=== PATIENT | male | born 1985 | race Two or more races ===

== ENCOUNTER 2019-06-17 14:37 | Emergency (ER) | payer BC ==
[~2019-06-17] VITALS: Ht 175.3 cm; Wt 72.6 kg
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
--- NOTE | 2019-06-17 15:13 | NUR ---
MATILDE MCKNIGHT AT BEDSIDE
[2019-06-17 15:19] VITALS: BP 132/76
--- NOTE | 2019-06-17 15:19 | NUR ---
Patient discharged to home in stable condition. Written and verbal after care instructions given. Patient verbalizes understanding of instruction.
== END 2019-06-17 15:20 | disposition home or self-care (01) ==
LOC: ER 14:37
DX: S39.012A Strain of muscle, fascia and tendon of lower back, initial encounter (principal); V43.62XA Car passenger injured in collision with other type car in traffic accident, initial encounter; Y93.89 Activity, other specified; Y92.413 State road as the place of occurrence of the external cause; Y99.8 Other external cause status

== ENCOUNTER 2025-10-15 09:13 | Emergency (ER) | payer BC ==
[~2025-10-15] VITALS: Ht 170.2 cm; Wt 83.9 kg
[2025-10-15] MEDS ORDERED: NAPR-1164 PO (09:35)
[2025-10-15] MEDS ORDERED: METH4TAB3 PO (09:35)
[2025-10-15] MEDS ORDERED: KETOROLAC TROMETHAMINE 15 MG/ML VIAL ONE (09:51)
[2025-10-15] MEDS: KETOROLAC TROMETHAMINE 15 MG/ML VIAL IM ONE (09:57)
[2025-10-15 10:00] VITALS: BP 121/88; TEMP 98.6; O2SAT 99
== END 2025-10-15 10:01 | disposition home or self-care (01) ==
LOC: ER 09:19
DX: S76.311A Strain of muscle, fascia and tendon of the posterior muscle group at thigh level, right thigh, initial encounter (principal); X58.XXXA Exposure to other specified factors, initial encounter; Y93.89 Activity, other specified; Y92.89 Other specified places as the place of occurrence of the external cause; Y99.8 Other external cause status
CPT/HCPCS: 99283; 96372; J1885